=== PATIENT | male | born 1995 | race African-American/Black ===

== ENCOUNTER 2017-10-15 20:20 | Emergency (ER) | payer OTHER ==
[~2017-10-15] VITALS: Ht 172.7 cm; Wt 79.1 kg
[2017-10-15] MEDS ORDERED: NS 1,000 ML IV ONE (21:00)
[2017-10-15] MEDS ORDERED: MORPHINE 4 MG/ML 1ML SYRINGE IV ONE (21:00)
--- NOTE | 2017-10-15 21:20 | REPUSA ---
CT of the abdomen and pelvis without contrast Clinical statement: Pain. Technique: Multiple axial CT images were obtained from the base of the lungs to the floor of the pelv is utilizing 5 mm axial slices without administration of contrast. Coronal and sagittal reconstructio ns were also obtained. No comparison is available. Findings: Chest: The visualized lung bases are clear. Abdomen: The kidneys are normal in size bilaterally. There is no evidence of hydronephrosis or nephro lithiasis. The liver, spleen, pancreas, gallbladder and adrenal glands are unremarkable. The aorta de monstrates normal caliber and contour. There is no abdominal lymphadenopathy or ascites. Pelvis: The bowel is unremarkable, with no obstructive or inflammatory changes. The appendix is jonel l. The urinary bladder is within normal limits. There is no pelvic lymphadenopathy or ascites. The ot her pelvic structures appear unremarkable. Bones: There are no suspicious osseous abnormalities seen. Impression: Unremarkable CT examination of the abdomen and pelvis.
[2017-10-15 21:36] LABS: BASO % 0.3 % (0.0-1.0); EOS # 0.1 10^3/uL (0.0-0.50); EOS % 2.1 % (0.0-3.0); IMMATURE GRANULOCYTE % 0.2 % (0-0); LYMPH # 2.7 10^3/uL (1.5-6.5); MEAN CORPUSCULAR HEMOGLOBIN 26.3 pg (27.0-33.0); MEAN CORPUSCULAR HGB CONC 31.5 g/dl (32.0-36.5); MEAN CORPUSCULAR VOLUME 83.4 fl (80.0-96.0); MONO # 0.4 10^3/uL (0.0-0.8); MONO % 7.1 % (0.0-5.0); NEUTROPHILS % 47.3 % (36.0-66.0); PLATELET COUNT, AUTOMATED 192 10^3/uL (150-450); WHITE BLOOD COUNT 6.2 10^3/uL (4.0-10.0)
[2017-10-15 21:40] LABS: MUCUS, URINE RFX SMALL (NEGATIVE); SQUAM EPITHELIAL CELL UR AURFX 0 /HPF (0-6)
[2017-10-15 21:56] LABS: ALBUMIN/GLOBULIN RATIO 1.18 (1.00-1.93); ALKALINE PHOSPHATASE 88 U/L (45-117); ALT/SGPT 33 U/L (12-78); ANION GAP 6 MEQ/L (8-16); AST/SGOT 20 U/L (7-37); BILIRUBIN,DIRECT 0.2 MG/DL (0.0-0.2); BILIRUBIN,TOTAL 0.9 MG/DL (0.2-1.0); BLOOD UREA NITROGEN 14 MG/DL (7-18); CALCIUM LEVEL 9.1 MG/DL (8.5-10.1); CARBON DIOXIDE LEVEL 33 MEQ/L (21-32); CHLORIDE LEVEL 104 MEQ/L (98-107); CREATININE FOR GFR 1.02 MG/DL (0.70-1.30); GLOMERULAR FILTRATION RATE > 60.0 (>60); GLUCOSE, FASTING 101 MG/DL (70-105); POTASSIUM SERUM 4.2 MEQ/L (3.5-5.1); SODIUM LEVEL 143 MEQ/L (136-145); TOTAL PROTEIN 7.4 GM/DL (6.4-8.2)
[2017-10-15 22:51] VITALS: BP 133/77
== END 2017-10-15 23:09 | disposition home or self-care (01) ==
LOC: M ED 20:20
DX: M54.5 Low back pain (principal); F17.210 Nicotine dependence, cigarettes, uncomplicated

== ENCOUNTER 2017-11-02 00:36 | Emergency (ER) | payer OTHER ==
[2017-11-02] MEDS: EMLA CREAM 5GM (LIDOCAINE/PRILOCAINE) TOP (02:15)
[2017-11-02] MEDS: NORCO, ANEXSIA 5/325MG TABLET (HYDROcodone/ACETAMINOPHEN) PO (02:27)
== END 2017-11-02 02:34 | disposition home or self-care (01) ==
LOC: M ED 00:36
DX: K64.4 Residual hemorrhoidal skin tags (principal)
CPT/HCPCS: 99283

== ENCOUNTER 2017-11-04 02:50 | Emergency (ER) | payer OTHER ==
[2017-11-04] MEDS: NORCO 5/325MG TABLET (BULK FOR ED) PO (03:38)
== END 2017-11-04 03:45 | disposition home or self-care (01) ==
LOC: M ED 02:50
DX: K64.4 Residual hemorrhoidal skin tags (principal)
CPT/HCPCS: 99282

== ENCOUNTER 2017-11-29 14:13 | Inpatient (IN) | payer OTHER ==
[2017-11-29 15:43] LABS: HEMATOCRIT 43.2 % (42.0-52.0); HEMOGLOBIN 13.7 g/dl (14.0-18.0); MEAN CORPUSCULAR HEMOGLOBIN 26.6 pg (27.0-33.0); MEAN CORPUSCULAR HGB CONC 31.7 g/dl (32.0-36.5); MEAN CORPUSCULAR VOLUME 83.7 fl (80.0-96.0); PLATELET COUNT, AUTOMATED 178 10^3/uL (150-450); RED BLOOD COUNT 5.16 10^6/uL (4.30-6.10); RED CELL DISTRIBUTION WIDTH 13.2 % (11.5-14.5); WHITE BLOOD COUNT 6.1 10^3/uL (4.0-10.0)
[2017-11-29 16:18] LABS: AMPHETAMINES LEVEL URINE NEGATIVE (NEGATIVE); BARBITURATES URINE NEGATIVE (NEGATIVE); BENZODIAZEPINES URINE NEGATIVE (NEGATIVE); CANNABINOIDS URINE NEGATIVE (NEGATIVE); COCAINE METABOLITE URINE NEGATIVE (NEGATIVE); METHADONE URINE NEGATIVE (NEGATIVE); OPIATES URINE NEGATIVE (NEGATIVE); PHENCYCLIDINE URINE NEGATIVE (NEGATIVE)
[2017-11-29 16:27] LABS: ALBUMIN 4.2 GM/DL (3.2-5.2); ALKALINE PHOSPHATASE 84 U/L (45-117); ALT/SGPT 33 U/L (12-78); ANION GAP 7 MEQ/L (8-16); AST/SGOT 31 U/L (7-37); BILIRUBIN,DIRECT 0.3 MG/DL (0.0-0.2); BILIRUBIN,TOTAL 1.6 MG/DL (0.2-1.0); BLOOD UREA NITROGEN 13 MG/DL (7-18); CALCIUM LEVEL 8.8 MG/DL (8.5-10.1); CARBON DIOXIDE LEVEL 29 MEQ/L (21-32); CHLORIDE LEVEL 105 MEQ/L (98-107); CREATININE FOR GFR 1.05 MG/DL (0.70-1.30); ETHYL ALCOHOL (ETHANOL) 0.004 % (0.000-0.010); GLOMERULAR FILTRATION RATE > 60.0 (>60); GLUCOSE, FASTING 98 MG/DL (70-100); SODIUM LEVEL 141 MEQ/L (136-145); THYROID STIMULATING HORMONE 0.499 uIU/ML (0.358-3.740); TOTAL PROTEIN 7.2 GM/DL (6.4-8.2)
[2017-11-29 16:34] LABS: ACETAMINOPHEN LEVEL < 2.0 UG/ML (10.0-30.0); SALICYLATE LEVEL < 1.7 MG/DL (5.0-30.0)
[2017-11-29] MEDS ORDERED: MAALOX 30 ML SUSP *UDC PO (17:00)
[2017-11-29] MEDS ORDERED: MOM 30ML SUSPENSION UDC PO (17:00)
[2017-11-29] MEDS ORDERED: hydrOXYzine 50 MG TAB PO (17:00)
[2017-11-29] MEDS: ACETAMINOPHEN TAB 650MG DOSE (2X325MG) PO (18:20)
[2017-11-29] MEDS: NICOTINE 14 MG/24 HR TRANSDERMAL TD (18:23)
[2017-11-29] MEDS: traZODone 25MG PER 1/2 TABLET PO (22:54)
[2017-11-30] MEDS: SERTRALINE HCL 50 MG TAB PO (08:20)
[2017-11-30] MEDS: NICOTINE 14 MG/24 HR TRANSDERMAL TD (08:20)
== END 2017-11-30 12:55 | disposition home or self-care (01) | DRG 881 ==
LOC: M ED 14:13 → M ED INP 16:46 → M PSY 18:00
DX: F32.9 Major depressive disorder, single episode, unspecified (principal); G47.00 Insomnia, unspecified; Z63.0 Problems in relationship with spouse or partner; F17.210 Nicotine dependence, cigarettes, uncomplicated